=== PATIENT | male | born 1965 | race Caucasian/White ===

== ENCOUNTER 2018-01-21 15:35 | Inpatient (IN) | payer MEDICARE ==
[~2018-01-21] VITALS: Ht 185.4 cm; Wt 100.0 kg
[2018-01-21 15:59] LABS: BASOPHILS # (AUTO) 0.1 X10'3 (0-0.2); BASOPHILS % (AUTO) 0.7 % (0-1); EOSINOPHILS # (AUTO) 0.3 X10'3 (0-0.9); EOSINOPHILS % (AUTO) 3.9 % (0-6); HEMATOCRIT 38.9 % (42.0-52.0); HEMOGLOBIN 13.8 g/dl (14.0-17.9); LYMPHOCYTES # (AUTO) 2.2 X10'3 (1.1-4.8); LYMPHOCYTES % (AUTO) 26.5 % (21-51); MEAN CORPUSCULAR HGB CONC 35.5 % (33.0-36.5); MEAN CORPUSCULAR VOLUME 90.1 FL (78-98); MEAN PLATELET VOLUME 7.6 FL (7.4-10.4); MONOCYTES # (AUTO) 0.7 X10'3 (0-0.9); MONOCYTES % (AUTO) 7.9 % (2-12); NEUTROPHILS # (AUTO) 5.1 X10'3 (1.8-7.7); PLATELET COUNT 219 X10'3 (140-440); RED BLOOD COUNT 4.32 X10'6 (4.70-6.10); RED CELL DISTRIBUTION WIDTH 12.4 % (11.5-14.5); WHITE BLOOD COUNT 8.4 X10'3 (4.5-11.0)
[2018-01-21 16:11] LABS: PARTIAL THROMBOPLASTIN TIME 26 SECONDS (22-32); PROTHROMBIN TIME 10.6 SECONDS (9.0-12.0)
[2018-01-21 16:22] LABS: ALANINE AMINOTRANSFERASE 56 U/L (12-78); ALBUMIN 4.2 G/DL (3.4-5.0); ALBUMIN/GLOBULIN RATIO 1.2 (1.1-1.5); ALKALINE PHOSPHATASE 68 IU/L (46-116); ANION GAP 13 (8-16); ASPARTATE AMINO TRANSFERASE 28 U/L (10-37); BILIRUBIN,TOTAL 0.3 MG/DL (0.1-1.0); BLOOD UREA NITROGEN 19 MG/DL (7-18); BUN/CREATININE RATIO 15.1 (5.4-32.0); CALCIUM 9.6 MG/DL (8.5-10.1); CHLORIDE 103 MMOL/L (99-107); CREATINE KINASE 69 U/L (39-308); CREATININE 1.26 MG/DL (0.60-1.10); GLUCOSE 199 MG/DL (70-104); MAGNESIUM 1.9 MG/DL (1.5-2.4); POTASSIUM 3.2 MMOL/L (3.5-5.1); SODIUM 141 MMOL/L (135-145); TOTAL CARBON DIOXIDE 24.6 MMOL/L (24-32); TOTAL PROTEIN 7.8 G/DL (6.4-8.2); eGFR 61 ML/MIN
[2018-01-21] MEDS ORDERED: normal saline 1000ml 1,000 ML IV ONE (16:33)
[2018-01-21] MEDS ORDERED: metoprolol tartrate 1mg/ml inj IV ONE (16:35)
[2018-01-21] MEDS ORDERED: nitroGLYCERIN 0.4mg/hour patch TD ONE (16:35)
[2018-01-21] MEDS ORDERED: aspirin 81mg tab.chew PO ONE (16:35)
[2018-01-21] MEDS ORDERED: normal saline 1000ML IV soln IVB ONE (16:35)
[2018-01-21] MEDS ORDERED: potassium 10mEq/100ml NS w/LIDOcaine (10mg/bag) IV ONE (16:50)
[2018-01-21] MEDS: normal saline 1000ml 1,000 ML IV SCH (17:18)
[2018-01-21] MEDS ORDERED: magnesium 4gm in 100ml NS 100 ML IV PRN (17:20)
[2018-01-21] MEDS ORDERED: potassium Cl 20 mEq SR tablet PO PRN ×2 (17:20)
[2018-01-21] MEDS ORDERED: magnesium Cl slow-release 64mg tablet PO PRN (17:20)
[2018-01-21] MEDS ORDERED: potassium Cl 40MEQ/NS 500ml 500 ML IV PRN ×2 (17:20)
[2018-01-21] MEDS ORDERED: ondansetron/PF 4mg/2ml inj IV PRN (17:20)
[2018-01-21] MEDS ORDERED: magnesium hydroxide 30ml (MOM) UD suspension PO PRN (17:20)
[2018-01-21] MEDS ORDERED: HYDROcodone/acetaminophen 10/325mg tab PO PRN (17:20)
[2018-01-21] MEDS ORDERED: nitroGLYCERIN 0.4mg SUBLingual tab SL PRN (17:20)
[2018-01-21] MEDS ORDERED: regadenoson 0.4mg/5ml syringe IV ONE (17:20)
[2018-01-21] MEDS ORDERED: HYDROcodone/acetaminophen 5mg/325mg tablet PO PRN (17:20)
[2018-01-21] MEDS ORDERED: metoprolol tartrate 1mg/ml inj IV PRN (17:20)
[2018-01-21] MEDS ORDERED: aminophylline 250mg/10ml inj. IV PRN (17:20)
[2018-01-21] MEDS ORDERED: mag hydrox/Alum hydrox/simeth 30ml oral suspension PO PRN (17:20)
[2018-01-21] MEDS ORDERED: acetaminophen 325mg tablet PO PRN (17:20)
[2018-01-21] MEDS ORDERED: magnesium 2GM in 50ml NS 50 ML IV PRN (17:20)
[2018-01-21] MEDS: metoprolol tartrate 25mg tablet PO SCH (20:14)
[2018-01-21] MEDS: heparin, porcine 5000 units/ml vial SQ SCH (20:15)
[2018-01-21] MEDS ORDERED: temazepam 15mg capsule PO PRN (21:00)
[2018-01-21] MEDS ORDERED: AMLO1TAB39 PO (22:29)
[2018-01-21] MEDS ORDERED: CHLO25TA2 PO (22:29)
[2018-01-21] MEDS ORDERED: TRAZ-143 PO (22:30)
[2018-01-22] VITALS (8 sets, daily range): BP systolic 113–130; BP diastolic 59–70
[2018-01-22 01:44] LABS: ALANINE AMINOTRANSFERASE 47 U/L (12-78); ALBUMIN 3.5 G/DL (3.4-5.0); ALBUMIN/GLOBULIN RATIO 1.2 (1.1-1.5); ALKALINE PHOSPHATASE 58 IU/L (46-116); ANION GAP 9 (8-16); ASPARTATE AMINO TRANSFERASE 24 U/L (10-37); BILIRUBIN,TOTAL 0.3 MG/DL (0.1-1.0); BLOOD UREA NITROGEN 18 MG/DL (7-18); BUN/CREATININE RATIO 16.4 (5.4-32.0); CALCIUM 8.3 MG/DL (8.5-10.1); CHLORIDE 108 MMOL/L (99-107); CHOL/HDL RATIO 3.9 (0.00-4.99); CHOLESTEROL 168 MG/DL (0-200); GLUCOSE 106 MG/DL (70-104); HDL CHOLESTEROL 43 MG/DL (35-60); LDL CHOLESTEROL 102 MG/DL (50-100); MAGNESIUM 1.9 MG/DL (1.5-2.4); POTASSIUM 3.3 MMOL/L (3.5-5.1); SODIUM 142 MMOL/L (135-145); TOTAL CARBON DIOXIDE 25.4 MMOL/L (24-32); TOTAL PROTEIN 6.5 G/DL (6.4-8.2); TRIGLYCERIDES 171 MG/DL (20-135); TROPONIN I < 0.04 NG/ML (0.0-0.05); eGFR 71 ML/MIN
[2018-01-22 02:38] LABS: BASOPHILS % (AUTO) 0.6 % (0-1); EOSINOPHILS # (AUTO) 0.5 X10'3 (0-0.9); EOSINOPHILS % (AUTO) 6.1 % (0-6); HEMATOCRIT 35.8 % (42.0-52.0); HEMOGLOBIN 12.6 g/dl (14.0-17.9); LYMPHOCYTES % (AUTO) 36.9 % (21-51); MEAN CORPUSCULAR HEMOGLOBIN 32.2 PG (27.0-31.0); MEAN CORPUSCULAR HGB CONC 35.2 % (33.0-36.5); MEAN CORPUSCULAR VOLUME 91.5 FL (78-98); MEAN PLATELET VOLUME 8.2 FL (7.4-10.4); MONOCYTES # (AUTO) 0.6 X10'3 (0-0.9); MONOCYTES % (AUTO) 7.9 % (2-12); NEUTROPHILS # (AUTO) 3.9 X10'3 (1.8-7.7); NEUTROPHILS % (AUTO) 48.5 % (42-75); PLATELET COUNT 190 X10'3 (140-440); RED BLOOD COUNT 3.91 X10'6 (4.70-6.10); RED CELL DISTRIBUTION WIDTH 12.6 % (11.5-14.5); WHITE BLOOD COUNT 8.1 X10'3 (4.5-11.0)
[2018-01-22] MEDS ORDERED: regadenoson 0.4mg/5ml syringe IV PRN (05:30)
[2018-01-22] MEDS: normal saline 1000ml 1,000 ML IV SCH (06:19)
[2018-01-22] MEDS ORDERED: pantoprazole 40mg Tablet.DR PO SCH (07:30)
[2018-01-22] MEDS ORDERED: K and/or MAG REPLACEMENT MC SCH (08:00)
[2018-01-22] MEDS ORDERED: losartan 50mg tablet PO SCH (08:00)
[2018-01-22] MEDS ORDERED: HYDROchlorothiazide 12.5mg capsule PO SCH (08:00)
[2018-01-22] MEDS ORDERED: aspirin 325mg tablet PO SCH (08:30)
[2018-01-22] MEDS ORDERED: aminophylline inj. 0 ML IV ONE (09:13)
[2018-01-22] MEDS ORDERED: regadenoson 0.4mg/5ml syringe IV ONE (09:13)
[2018-01-22] MEDS: metoprolol tartrate 25mg tablet PO SCH (10:51)
[2018-01-22] MEDS: heparin, porcine 5000 units/ml vial SQ SCH (10:53)
[2018-01-22] MEDS ORDERED: ASPI-1265 PO (12:52)
== END 2018-01-22 13:05 | disposition home or self-care (01) | DRG 311 ==
LOC: EEVIPCON 15:35 → ER 15:35 → ED HOLD 17:18 → PCU 3S 22:45
PROVIDERS: ADMIT Internal Medicine; ATTEND Internal Medicine
PROC: 4A02XM4 Measurement of Cardiac Total Activity, External Approach (ICD-10-PCS; principal; 2018-01-22)
PROC: 3E073KZ Introduction of Other Diagnostic Substance into Coronary Artery, Percutaneous Approach (ICD-10-PCS; 2018-01-22)
DX: I24.9 Acute ischemic heart disease, unspecified (principal); E86.0 Dehydration; I10 Essential (primary) hypertension; E87.6 Hypokalemia; Z79.899 Other long term (current) drug therapy
CPT/HCPCS: 36415; 71045; 78452; 80053; 80061; 82550; 83735; 83880; 84484; 85025; 85610; 85730; 87070; 93005; 93017; 93306; 93880; 96361; 96374; 99285; A9500; J0280; J1644; J2785; J3480; J3490; J7030

== ENCOUNTER 2018-03-10 13:42 | Day surgery (SDC) | payer MEDICARE ==
[2018-03-08 10:08] LABS: BASOPHILS % (AUTO) 0.3 % (0-1); EOSINOPHILS # (AUTO) 0.1 X10'3 (0-0.9); EOSINOPHILS % (AUTO) 1.3 % (0-6); HEMOGLOBIN 15.9 g/dl (14.0-17.9); LYMPHOCYTES # (AUTO) 2.3 X10'3 (1.1-4.8); MEAN CORPUSCULAR HGB CONC 35.2 % (33.0-36.5); MEAN CORPUSCULAR VOLUME 90.8 FL (78-98); MEAN PLATELET VOLUME 7.1 FL (7.4-10.4); MONOCYTES # (AUTO) 0.5 X10'3 (0-0.9); MONOCYTES % (AUTO) 6.7 % (2-12); NEUTROPHILS # (AUTO) 4.7 X10'3 (1.8-7.7); NEUTROPHILS % (AUTO) 61.7 % (42-75); PLATELET COUNT 232 X10'3 (140-440); RED BLOOD COUNT 4.96 X10'6 (4.70-6.10); RED CELL DISTRIBUTION WIDTH 12.8 % (11.5-14.5); WHITE BLOOD COUNT 7.6 X10'3 (4.5-11.0)
[2018-03-08 10:17] LABS: ALBUMIN 4.2 G/DL (3.4-5.0); ANION GAP 13 (8-16); BLOOD UREA NITROGEN 12 MG/DL (7-18); CALCIUM 9.5 MG/DL (8.5-10.1); CHLORIDE 102 MMOL/L (99-107); CREATININE 1.09 MG/DL (0.60-1.10); GLUCOSE 106 MG/DL (70-104); POTASSIUM 3.5 MMOL/L (3.5-5.1); SODIUM 142 MMOL/L (135-145); TOTAL CARBON DIOXIDE 26.7 MMOL/L (24-32); eGFR 72 ML/MIN
[2018-03-08 10:19] LABS: PARTIAL THROMBOPLASTIN TIME 27 SECONDS (22-32); PROTHROMBIN TIME 10.5 SECONDS (9.0-12.0)
[~2018-03-10] VITALS: Ht 185.4 cm; Wt 102.8 kg
[~2018-03-10 13:42] MED LIST: AMLO1TAB39 PO; CHLO25TA2 PO; TRAZ-143 PO
[2018-03-10] MEDS ORDERED: LORazepam 0.5 MG tablet PO PRN (14:05)
[2018-03-10] MEDS ORDERED: diphenhydrAMINE 25mg capsule PO PRN (14:05)
[2018-03-10] MEDS ORDERED: normal saline 1000ml 1,000 ML IV SCH (14:05)
[2018-03-10] MEDS ORDERED: LIDOcaine/PRILOcaine 5gm cream TP ONE (14:05)
[2018-03-10 14:30] VITALS: BP 119/67
[2018-03-10] MEDS ORDERED: AMLO1TAB65 PO (14:45)
[2018-03-10] MEDS ORDERED: midazolam 2 mg/2 ml injection ONE ×2 (16:43→16:47)
[2018-03-10] MEDS ORDERED: fentaNYL/PF 50MCG/1 ML 2ML syringe ONE (16:43)
[2018-03-10 17:30] VITALS: BP 101/55
== END 2018-03-10 19:35 | disposition home or self-care (01) ==
LOC: SSTAY O 13:42
PROVIDERS: ATTEND Internal Medicine Interventional Cardiology
DX: I25.119 Atherosclerotic heart disease of native coronary artery with unspecified angina pectoris (principal); I10 Essential (primary) hypertension; E78.5 Hyperlipidemia, unspecified; E87.6 Hypokalemia; Z79.891 Long term (current) use of opiate analgesic; Z85.828 Personal history of other malignant neoplasm of skin; Z79.899 Other long term (current) drug therapy
CPT/HCPCS: 36415; 80048; 85025; 85610; 85730; 93005; 93458; 99152; 99153; A6257; A6258; A6402; J2250; J3010; J7030; Q0163; A4620

== ENCOUNTER 2021-02-13 17:41 | Emergency (ER) | payer BC, MEDICARE ==
[~2021-02-13] VITALS: Ht 182.9 cm; Wt 97.7 kg
[~2021-02-13 17:41] MED LIST changes: -AMLO1TAB39 PO; +AMLO1TAB65 PO; -TRAZ-143 PO; +TRAZ-251 PO
[2021-02-13 17:46] VITALS: BP 175/77
[2021-02-13] MEDS ORDERED: ondansetron 4mg rapidly disintigrating tab PO ONE (18:40)
[2021-02-13] MEDS ORDERED: bacitracin 15gm ointment TP ONE (18:40)
[2021-02-13] MEDS ORDERED: HYDROcodone/acetaminophen 5mg/325mg tablet PO ONE (18:40)
[2021-02-13] MEDS ORDERED: HYDR-3965 PO (19:38)
[2021-02-13] MEDS ORDERED: ONDA4TAB6 PO (19:38)
== END 2021-02-13 19:45 | disposition home or self-care (01) ==
LOC: ER 17:41
DX: S02.2XXA Fracture of nasal bones, initial encounter for closed fracture (principal); I10 Essential (primary) hypertension; Z72.89 Other problems related to lifestyle; Z79.899 Other long term (current) drug therapy; X58.XXXA Exposure to other specified factors, initial encounter; Y93.89 Activity, other specified; Y92.89 Other specified places as the place of occurrence of the external cause; Y99.8 Other external cause status
CPT/HCPCS: 99284